=== PATIENT | female | born 1960 | race Asian ===

== ENCOUNTER 2019-03-11 20:41 | Inpatient (IN) | payer OTHER ==
[~2019-03-11] VITALS: Ht 160 cm; Wt 49.9 kg
[2019-03-11] MEDS: ENOXAPARIN SODIUM 40 MG/0.4 ML DISP.SYRIN SQ SCH (01:22)
[2019-03-11] MEDS: BLOOD SUGAR DIAGNOSTIC 1 EACH STRIP IN SCH (01:22)
[2019-03-12] MEDS: BLOOD SUGAR DIAGNOSTIC 1 EACH STRIP IN SCH ×6 (01:22→21:21)
--- NOTE | 2019-03-12 01:22 | NUR ---
WICK TENDER NOTE PT ARRIVED TO UNIT VIA GURNEY ACCOMPANIED BY AMBULANZ PERSONNEL. PT IS IN STABLE CONDITION A&O X4, ABLE TO MAKE NEEDS KNOWN. NO SIGNS OF SOB OR DISTRESS, NO C/O PAIN. STROKE ASSESSMENT DONE, WITH THE ONLY C/O OF NUMBNESS IN R HAND FINGERS. TELE MONITOR READING AT SR 59. PT IS ABLE TO AMBULATE WITH A STEADY GAIT. ALL BELONGINGS ACCOUNTED FOR. MERY ANN ALSO CAME TO ASSESS PT. IN PT. ROOM. ALL CURRENT NEEDS MET. BED LOW, LOCKED, UPPER RAILS UP, AND CALL LIGHT WITHIN REACH. WILL CONT TO MONITOR.
[2019-03-12 01:30] VITALS: BP 128/78
--- NOTE | 2019-03-12 06:35 | NUR ---
MS RN NOTE PT IS IN STABLE CONDITION A&O X4, ABLE TO MAKE NEEDS KNOWN. NO SIGNS OF SOB OR DISTRESS, NO C/O PAIN. TELE MONITOR READING AT SR 46.PT CURRENTLY RESTING, EASILY AROUSABLE WHEN NAME IS CALLED. ALL CURRENT NEEDS MET. BED LOW, LOCKED, UPPER RAILS UP, AND CALL LIGHT WITHIN REACH. WILL CONT TO MONITOR AND ENDORSE TO NEXT SHIFT FOR FERNY.
--- NOTE | 2019-03-12 07:10 | NUR ---
SAMPLER TESTER OPENING NOTE RECEIVED PATIENT IN BED. SLEEPING, EASILY AROUSED WITH VERBAL STIMULI, ORIENTED X4. ON ROOM AIR, TOLERATING WELL. IN NO APPARENT DISTRESS OR DISCOMFORT AT THIS TIME. RESPIRATIONS EVEN AND UNLABORED. DENIES PAIN AND SOB. PATIENT IS ON TELE MONITORING WITH SB AND HR OF . NO FACIAL ASYMMETRY, NO SLURRED SPEECH, NO WEAKNESS IN EXTREMITIES, PATIENT ONLY REPORTS NUMBNESS IN IN HER RIGHT HAND FINGERS. RIGHT AC 18G IVC SL AT THIS TIME, PATENT AND INTACT. PATIENT KEPT CLEAN AND COMFORTABLE. ALL NEEDS ATTENDED, SAFETY MEASURES IN PLACE, BED IN LOW LOCKED POSITION, SIDE RAILS UP X2, CALL LIGHT WITHIN EASY REACH. WILL CONTINUE TO MONITOR.
[2019-03-12 07:25] LABS: BASOPHILS % (AUTO) 0.7 % (0.0-2.0); EOSINOPHILS % (AUTO) 4.6 % (0.0-6.0); HEMATOCRIT 40 % (33-45); HEMOGLOBIN 13.5 g/dL (11.5-14.8); LYMPHOCYTES # (AUTO) 1.7 /CMM (0.8-4.8); LYMPHOCYTES % (AUTO) 34.4 % (20.0-44.0); MEAN CORPUSCULAR HGB CONC 34 g/dl (31.0-36.0); MEAN CORPUSCULAR VOLUME 92 fL (82-100); MONOCYTES # (AUTO) 0.4 /CMM (0.1-1.30); MONOCYTES % (AUTO) 8.9 % (2.0-12.0); NEUTROPHILS # (AUTO) 2.5 /CMM (1.8-8.9); NEUTROPHILS % (AUTO) 51.4 % (43.0-81.0); PLATELET COUNT (AUTO) 239 /CMM (150-450); RED BLOOD CELL COUNT(AUTO) 4.39 MIL/uL (4.0-5.2); WHITE BLOOD COUNT (AUTO) 4.8 K/uL (4.3-11.0)
[2019-03-12 08:00] VITALS: BP 121/79
[2019-03-12 08:11] LABS: CALCIUM, SERUM 8.5 mg/dL (8.5-10.1); CREATININE 0.6 mg/dL (0.6-1.3); POTASSIUM 3.7 mmol/L (3.5-5.1)
[2019-03-12] MEDS: ASPIRIN EC 325 MG TABLET.DR PO SCH (08:25)
[2019-03-12 08:45] LABS: THYROID STIMULATING HORMONE 5.497 uIU/mL (0.358-3.74)
[2019-03-12] MEDS ORDERED: DEXTROSE 50%-WATER 50 ML DISP.SYRIN IV PRN (11:00)
[2019-03-12] MEDS ORDERED: METO-356 PO (12:17)
[2019-03-12] MEDS ORDERED: LOSA25TA27 PO (12:17)
[2019-03-12 16:00] VITALS: BP 130/87
[2019-03-12 16:44] LABS: APPEARANCE,URINE CLEAR (CLEAR); BILIRUBIN,URINE NEGATIVE (NEGATIVE); BLOOD, URINE NEGATIVE Ery/uL (NEGATIVE); KETONES,URINE NEGATIVE (NEGATIVE); LEUKOCYTE ESTERASE ,URINE NEGATIVE (NEGATIVE); NITRITE, URINE NEGATIVE (NEGATIVE); PH,URINE 7.5 (5.0-8.0); PROTEIN,URINE NEGATIVE (NEGATIVE); UGLUCOSE NEGATIVE (NEGATIVE); UROBILINOGEN,URINE 0.2 EU/dL (0.2)
[2019-03-12 16:47] LABS: COLOR,URINE Light yellow (YELLOW)
--- NOTE | 2019-03-12 18:13 | NUR ---
MS RN CLOSING NOTE PATIENT IN BED. ALERT ORIENTED X4. ON ROOM AIR, TOLERATING WELL. IN NO APPARENT DISTRESS OR DISCOMFORT AT THIS TIME. RESPIRATIONS EVEN AND UNLABORED. DENIES PAIN AND SOB. NO FACIAL ASYMMETRY, NO SLURRED SPEECH, NO WEAKNESS IN EXTREMITIES NOTED OR REPORTED.PATIENT REPORTS NUMBNESS IN IN HER RIGHT HAND FINGERS ARE GETTING BETTER. RIGHT AC 18G IVC SL AT THIS TIME, PATENT AND INTACT. PATIENT KEPT CLEAN AND COMFORTABLE. ALL NEEDS ATTENDED,ORDERS RENDERED. SAFETY MEASURES IN PLACE, BED IN LOW LOCKED POSITION, SIDE RAILS UP X2, CALL LIGHT WITHIN EASY REACH. WILL ENDORSE TO PM NURSE FOR FERNY.
--- NOTE | 2019-03-12 19:40 | NUR ---
rn opening note pm patient seen in bed. reports numbness in hands have ceased. patient has symmetry of arms and leg movement. no s/s of stroke. speaks clearly face symmetrical. reviewed poc. questions concerns addressed. bed down locked and call light in reach. verbalized understanding to call for assistance if she needs anything or needs assistance.
[2019-03-12 20:00] VITALS: BP 130/90
[2019-03-12] MEDS: ENOXAPARIN SODIUM 40 MG/0.4 ML DISP.SYRIN SQ SCH (21:08)
--- NOTE | 2019-03-13 07:30 | NUR ---
RECEIVED PT. THIS AMALERT AND ORIENTED X4.NO COMPLAINTS OFFERED.
[2019-03-13] MEDS: BLOOD SUGAR DIAGNOSTIC 1 EACH STRIP IN SCH ×3 (07:48→17:37)
[2019-03-13 07:55] LABS: BASOPHILS % (AUTO) 0.8 % (0.0-2.0); EOSINOPHILS % (AUTO) 4.5 % (0.0-6.0); HEMATOCRIT 44 % (33-45); HEMOGLOBIN 14.7 g/dL (11.5-14.8); LYMPHOCYTES # (AUTO) 1.8 /CMM (0.8-4.8); LYMPHOCYTES % (AUTO) 43.1 % (20.0-44.0); MEAN CORPUSCULAR HGB CONC 34 g/dl (31.0-36.0); MEAN CORPUSCULAR VOLUME 92 fL (82-100); MONOCYTES # (AUTO) 0.3 /CMM (0.1-1.30); MONOCYTES % (AUTO) 7.5 % (2.0-12.0); NEUTROPHILS # (AUTO) 1.8 /CMM (1.8-8.9); NEUTROPHILS % (AUTO) 44.1 % (43.0-81.0); PLATELET COUNT (AUTO) 252 /CMM (150-450); RED BLOOD CELL COUNT(AUTO) 4.75 MIL/uL (4.0-5.2); WHITE BLOOD COUNT (AUTO) 4.2 K/uL (4.3-11.0)
[2019-03-13 08:00] VITALS: BP 127/83
[2019-03-13 08:27] LABS: CALCIUM, SERUM 8.9 mg/dL (8.5-10.1); CREATININE 0.7 mg/dL (0.6-1.3); MAGNESIUM 2.1 mg/dL (1.8-2.4); PHOSPHORUS 3.8 mg/dL (2.5-4.9); POTASSIUM 3.6 mmol/L (3.5-5.1)
[2019-03-13 08:42] LABS: THYROID STIMULATING HORMONE 3.015 uIU/mL (0.358-3.74)
[2019-03-13] MEDS: ASPIRIN EC 325 MG TABLET.DR PO SCH (08:57)
--- NOTE | 2019-03-13 11:30 | NUR ---
GIOVANI FORWARDER OPERATOR IN SPOKE WITH PT. AT LENGTH.
[2019-03-13 16:00] VITALS: BP 110/55
--- NOTE | 2019-03-13 18:00 | NUR ---
dr. landry in to see pt. stated from his standpoint pt. could be dc,d.and that he wanted pt.. on [id number] mg and a statin.rn texted fabio hall in [place] and gave her info as pt.wants to be discharged.fabio hall stated this would have to wait as she is in [place].pt.and family member informed.pt. verbalized understanding.
--- NOTE | 2019-03-13 19:30 | NUR ---
rn opening note pm patient seen in bed. reports numbness in hands have ceased. patient has symmetry of arms and leg movement. no s/s of stroke. speaks clearly face symmetrical. reviewed poc. awaiting photoengraving photographer luis to come see patient for possible discharge. questions concerns addressed. bed down locked and call light in reach. verbalized understanding to call for assistance if she needs anything or needs assistance. at the bedside.
[2019-03-13] MEDS ORDERED: SIMV10TA6 PO (19:34)
[2019-03-13] MEDS ORDERED: ASPI-1169 PO (19:34)
[2019-03-13 20:00] VITALS: BP 136/90
--- NOTE | 2019-03-13 21:00 | NUR ---
PATIENT DISCHARGED. REVIEWED PATIENT DISCHARGE INSTRUCTIONS WITH PATIENT AND . QUESTIONS CONCERNS ADDRESSED. VERBALIZED UNDERSTANDING ON TIA EDUCATION, REVIEWED HANDOUT, REVIEWED DIET INSTRUCTIONS. REVIEWED NEW PRESCRIBED MEDICATIONS IV REMOVED FROM RIGHT AC NO S/S OF COMPLICATIONS. PATIENT ESCORTED OFF UNIT BY ME AND OUTSIDE THROUGH EMERGENCY DEPEARTMENT. PATIENT AND DECLINED ESCORT TO CAR.
[2019-03-14 13:12] LABS: *DILUTE PROTHROMBIN TIME (dPT) 40.2 sec (0.0-55.0); *INTERPRETATION Comment: (.); *PTT-LA 33.5 sec (0.0-51.9); *THROMBIN TIME 18.4 sec (0.0-23.0); *dPT CONFIRM RATIO 1.07 Ratio (0.00-1.40); *dRVVT 32.7 sec (0.0-47.0)
[2019-03-15 03:11] LABS: *CARD ANTI-CARDIOLIPIN AB IgG <9 GPL U/mL (0-14); *CARD ANTI-CARDIOLIPIN AB IgM 14 MPL U/mL (0-12)
== END 2019-03-13 21:06 | disposition home or self-care (01) | DRG 47 ==
LOC: TELE 03-12 01:15 → MED 03-12 11:14
PROVIDERS: ADMIT Nurse Practitioner Acute Care; ATTEND Registered Nurse
DX: G45.9 Transient cerebral ischemic attack, unspecified (principal); E16.2 Hypoglycemia, unspecified; E78.5 Hyperlipidemia, unspecified; I10 Essential (primary) hypertension; Z82.3 Family history of stroke; Z82.49 Family history of ischemic heart disease and other diseases of the circulatory system
CPT/HCPCS: 36415; 70551-TC; 80048-TC; 80061-TC; 80305; 81000-TC; 82962-TC; 83735-TC; 83880; 84100-TC; 84439-TC; 84443-TC; 85025-TC; 85613; 85652-TC; 85670; 85705; 85730-TC; 85732; 86147; 87081-TC; 92526; 92611-TC; 93307-TC; 93880-TC; 97116-TC; 97530-TC; G0378; J1650